=== PATIENT | female | born 1960 | race Asian ===

== ENCOUNTER → 2017-02-13 16:53 | Outpatient (CLI) | payer OTHER | END | disposition home or self-care (01) | LOC: AMB 16:53 | DX: Z04.1 Encounter for examination and observation following transport accident (principal) ==

== ENCOUNTER 2017-03-04 15:14 | Outpatient (CLI) | payer OTHER | END 2017-03-04 19:12 | disposition home or self-care (01) | LOC: RAD 15:14 | DX: R76.11 Nonspecific reaction to tuberculin skin test without active tuberculosis (principal) ==

== ENCOUNTER 2020-05-28 10:18 | Outpatient (CLI) | payer OTHER | END 2020-05-28 19:50 | disposition home or self-care (01) | LOC: INF 10:18 | PROVIDERS: ATTEND Internal Medicine | DX: Z23 Encounter for immunization (principal) | CPT/HCPCS: 96372 ==

== ENCOUNTER 2020-06-25 15:31 | Outpatient (CLI) | payer OTHER | END 2020-06-25 21:37 | disposition home or self-care (01) | LOC: INF 15:31 | PROVIDERS: ATTEND Internal Medicine | DX: Z23 Encounter for immunization (principal) | CPT/HCPCS: 96372 ==

== ENCOUNTER 2021-02-26 11:28 | Day surgery (SDC) | payer OTHER ==
[2021-01-09 14:19] LABS: PLATELET COUNT 253 K/uL (152-353)
[2021-01-09 14:36] LABS: POTASSIUM 3.7 mmol/L (3.6-5.2)
[2021-02-24 11:31] LABS: PLATELET COUNT 243 K/uL (152-353)
[~2021-02-26] VITALS: Ht 152.4 cm; Wt 0.5 kg
== END 2021-02-26 14:12 | disposition home or self-care (01) ==
LOC: OR 11:28
PROVIDERS: ATTEND Internal Medicine Gastroenterology
PROC: 0DJD8ZZ Inspection of Lower Intestinal Tract, Via Natural or Artificial Opening Endoscopic (ICD-10-PCS; principal; 2021-02-26)
DX: K57.30 Diverticulosis of large intestine without perforation or abscess without bleeding (principal); K64.8 Other hemorrhoids; Z12.11 Encounter for screening for malignant neoplasm of colon; Z20.822 Contact with and (suspected) exposure to COVID-19
CPT/HCPCS: 80053; 85027; 87635; J2704; U0003

== ENCOUNTER 2021-07-30 16:06 | Outpatient (CLI) | payer OTHER ==
[2021-07-30 17:03] LABS: PLATELET COUNT 288 K/uL (152-353)
[2021-07-30 17:26] LABS: POTASSIUM 4.6 mmol/L (3.6-5.2)
== END 2021-07-30 21:44 | disposition home or self-care (01) ==
LOC: LAB 16:06
PROVIDERS: ATTEND Nurse Practitioner Family
DX: E78.5 Hyperlipidemia, unspecified (principal); E55.9 Vitamin D deficiency, unspecified; N28.9 Disorder of kidney and ureter, unspecified; R73.03 Prediabetes; K21.9 Gastro-esophageal reflux disease without esophagitis; R53.83 Other fatigue; Z79.899 Other long term (current) drug therapy; R68.89 Other general symptoms and signs
CPT/HCPCS: 80053; 80061; 82306; 82607; 83036; 84439; 84443; 85027

== ENCOUNTER 2021-11-10 13:09 | Outpatient (CLI) | payer OTHER ==
[2021-11-10 13:26] LABS: PLATELET COUNT 214 K/uL (152-353)
[2021-11-10 13:54] LABS: POTASSIUM 4.1 mmol/L (3.6-5.2)
== END 2021-11-10 19:36 | disposition home or self-care (01) ==
LOC: LAB 13:09
PROVIDERS: ATTEND Nurse Practitioner Family
DX: E78.49 Other hyperlipidemia (principal); E55.9 Vitamin D deficiency, unspecified; N28.89 Other specified disorders of kidney and ureter; R73.03 Prediabetes; K21.9 Gastro-esophageal reflux disease without esophagitis; R53.83 Other fatigue; Z79.899 Other long term (current) drug therapy; R53.81 Other malaise; R68.89 Other general symptoms and signs
CPT/HCPCS: 80053; 80061; 82306; 83036; 84439; 84443; 85027

== ENCOUNTER 2022-02-03 12:24 | Outpatient (CLI) | payer OTHER ==
[2022-02-03 13:01] LABS: PLATELET COUNT 366 K/uL (152-353)
[2022-02-03 13:42] LABS: POTASSIUM 3.8 mmol/L (3.6-5.2)
== END 2022-02-03 19:16 | disposition home or self-care (01) ==
LOC: LAB 12:24
PROVIDERS: ATTEND Nurse Practitioner Family
DX: E78.49 Other hyperlipidemia (principal); E55.9 Vitamin D deficiency, unspecified; N28.89 Other specified disorders of kidney and ureter; R73.03 Prediabetes; Z79.899 Other long term (current) drug therapy; K21.9 Gastro-esophageal reflux disease without esophagitis; R53.83 Other fatigue; R53.81 Other malaise; R68.89 Other general symptoms and signs; R10.13 Epigastric pain
CPT/HCPCS: 80053; 80061; 82306; 83036; 84439; 84443; 85027

== ENCOUNTER 2022-02-18 09:37 | Outpatient (CLI) | payer OTHER | END 2022-02-18 19:18 | disposition home or self-care (01) | LOC: MAMMO 09:37 | PROVIDERS: ATTEND Nurse Practitioner Family | DX: Z12.31 Encounter for screening mammogram for malignant neoplasm of breast (principal) ==